=== PATIENT | male | born 1945 | race American Indian/Alaskan Native ===

== ENCOUNTER 2018-05-23 19:34 | Emergency (ER) | payer MEDICARE, MEDICAID ==
[2018-05-23 21:18] LABS: BASO % 0.5 % (0.0-3.0); EOS % 1.1 % (1.5-5.0); GRAN % 76.6 % (50.0-68.0); HEMOGLOBIN 11.8 g/dL (14.0-18.0); MEAN CELL VOLUME 89.6 fl (80.0-105.0); MEAN CORPUSCULAR HEMOGLOBIN 29.8 pg (25.0-35.0); MEAN CORPUSCULAR HGB CONC 33.2 g/dl (31.0-37.0); MEAN PLATELET VOLUME 10.1 fl (7.0-11.0); MONO % 3.8 % (1.0-6.0); RBC 3.96 10^6/uL (3.5-6.1); RED CELL DISTRIBUTION WIDTH 13.6 % (11.5-14.5); WHITE BLOOD COUNT 7.5 10^3/ul (4.5-11.0)
[2018-05-23 21:19] LABS: BASO # 0.04 K/mm3 (0.0-2.0); EOS # 0.1 (0.0-0.7); GRAN # 5.71 (1.4-6.5); LYMPH # 1.3 (1.2-3.4); MONO # 0.3 (0.1-0.6)
[2018-05-23 21:33] LABS: ALB/GLOB RATIO 1.2 (1.1-1.8); ALBUMIN 3.8 g/dL (3.0-4.8); ALT/SGPT 33 U/L (7-56); AST/SGOT 25 U/L (17-59); BLOOD UREA NITROGEN 15 mg/dL (7-21); CALCIUM 8.8 mg/dL (8.4-10.5); GFR NON-AFRICAN AMERICAN > 60
--- NOTE | 2018-05-23 21:35 | ED PDOC ---
Arrival/HPI - General Chief Complaint: Psychiatric Evaluation Time Seen by Provider: 05/23/18 19:42 Historian: EMS - History of Present Illness Narrative History of Present Illness (Text): 05/23/18 19:54 72 year old male, with no significant past medical history, presents to the Emergency department brought in by EMS for psychiatric evaluation today. As per EMS, patient was found on the street verbally interacting with the public with nonsensical language and was brought to the Emergency department for evaluation. Upon arrival to the Emergency department, patient is uncooperative and is a poor historian. HPI and ROS limited. Time/Duration: Prior to Arrival Symptom Onset: Gradual Symptom Course: Unchanged Activities at Onset: Light Context: Street Past Medical History - Provider Review Nursing Documentation Reviewed: Yes - Psychiatric Hx Substance Use: No (Unknown) Family/Social History - Physician Review Nursing Documentation Reviewed: Yes Family/Social History: No Known Family HX Smoking Status: Unknown If Ever Smoked Hx Alcohol Use: No (Unknown) Hx Substance Use: No (Unknown) Allergies/Home Meds Allergies/Adverse Reactions: Allergies Unobtainable Allergy (Verified 05/23/18 19:49) Home Medications: Home Meds Medication Instructions Recorded Confirmed Unobtainable 05/23/18 05/23/18 Review of Systems - Review of Systems Systems not reviewed;Unavailable: Acuity of Condition Physical Exam Vital Signs Reviewed: Yes Vital Signs Temp Pulse Resp BP Pulse Ox 05/24/18 16:46 98.5 F 96 H 18 150/97 H 98 05/24/18 12:45 98.7 F 92 H 19 99 05/24/18 10:11 99.0 F 82 17 142/75 97 05/24/18 06:00 88 18 142/72 97 05/24/18 04:36 76 16 136/79 100 05/23/18 23:27 86 18 141/67 95 05/23/18 19:48 98.1 F 116 H 18 162/108 H 97 Temperature: Afebrile Blood Pressure: Hypertensive Pulse: Tachycardic Respiratory Rate: Normal Appearance: Positive for: Well-Appearing Pain Distress: None Mental Status: Positive for: other (Alert and oriented to only person) - Systems Exam Head: Present: Atraumatic, Normocephalic Pupils: Present: PERRL Extroacular Muscles: Present: EOMI Conjunctiva: Present: Normal Neck: Present: Normal Range of Motion Respiratory/Chest: Present: Clear to Auscultation, Good Air Exchange. No: Respiratory Distress, Accessory Muscle Use Cardiovascular: Present: Regular Rate and Rhythm, Normal S1, S2. No: Murmurs Abdomen: No: Tenderness, Distention, Peritoneal Signs Back: Present: Normal Inspection Upper Extremity: Present: Normal Inspection. No: Cyanosis, Edema Lower Extremity: Present: Normal Inspection. No: Edema Neurological: Present: GCS=15, CN II-XII Intact Skin: Present: Warm, Dry, Normal Color. No: Rashes Psychiatric: Present: Alert (Oriented to only person) Medical Decision Making ED Course and Treatment: 05/23/18 19:54 Impression: 72 year old male presents to the Emergency department for psychiatric evaluation. Plan: -- CT of Head -- EKG -- Labs -- Chest X-ray -- Urinalysis -- Reassess and disposition Prior Visits: Notes and results from previous visits were reviewed. Progress Notes: 05/24/18 01:24 CT of head reviewed by radiologist, shows: No acute intracranial findings. - Lab Interpretations Lab Results: 05/23/18 20:35 05/23/18 20:35 Lab Results 05/23/18 23:28: Urine Opiates Screen Negative, Urine Methadone Screen Negative, Ur Barbiturates Screen Negative, Ur Phencyclidine Scrn Negative, Ur Amphetamines Screen Negative, U Benzodiazepines Scrn Negative, U Oth Cocaine Metabols Negative, U Cannabinoids Screen Negative 05/23/18 23:28: Urine Color Yellow, Urine Appearance Clear, Urine pH 7.0, Ur Specific [place] 1.015, Urine Protein Negative, Urine Glucose (UA) Negative, Urine Ketones Negative, Urine Blood Negative, Urine Nitrate Negative, Urine Bilirubin Negative, Urine Urobilinogen 0.2, Ur Leukocyte Esterase Negative 05/23/18 20:35: Alcohol, Quantitative < 10 05/23/18 20:35: Salicylates < 1 L, Acetaminophen < 10.0 L 05/23/18 20:35: Sodium 146, Potassium 3.2 L, Chloride 107, Carbon Dioxide 28, Anion Gap 14, BUN 15, Creatinine 1.1, Est GFR ( Amer) > 60, Est GFR (Non- Af Amer) > 60, Random Glucose 95, Calcium 8.8, Magnesium 2.2, Total Bilirubin 0.2, AST 25, ALT 33, Alkaline Phosphatase 82, Total Creatine Kinase 384 H, CK- MB (CK-2) 2.6, CK-MB (CK-2) % Cancelled, Total Protein 7.0, Albumin 3.8, Globulin 3.2, Albumin/Globulin Ratio 1.2 05/23/18 20:35: WBC 7.5, RBC 3.96, Hgb 11.8 L, Hct 35.5 L, MCV 89.6, MCH 29.8, MCHC 33.2, RDW 13.6, Plt Count 298, MPV 10.1, Gran % 76.6 H, Lymph % (Auto) 18.0 L, [place] % (Auto) 3.8, Eos % (Auto) 1.1 L, Baso % (Auto) 0.5, Gran # 5.71, Lymph # (Auto) 1.3, [place] # (Auto) 0.3, Eos # (Auto) 0.1, Baso # (Auto) 0.04 - RAD Interpretation Radiology Orders: 05/23/18 19:54 HEAD W/O CONTRAST [CT] Stat CHEST PORTABLE [RAD] Stat Gate Attendant: Radiologist - EKG Interpretation EKG Interpretation (Text): 05/24/18 06:07 nsr rate 93 nssts changes - Medication Orders Current Medication Orders: Discontinued Medications Potassium Chloride (K-Dur 20 Meq Er Tab) 40 meq PO STAT STA Stop: 05/24/18 02:02 Last Admin: 05/24/18 05:23 Dose: Not Given Non-Admin Reason: Patient Refused - Transfer of Care Patient signed out to Dr:: ehsan Benavidez Statement The provider has reviewed the documentation as recorded by the Pramod Cruz. All medical record entries made by the Pramod were at my direction and personally dictated by me. I have reviewed the chart and agree that the record accurately reflects my personal performance of the history, physical exam, medical decision making, and the department course for this patient. I have also personally directed, reviewed, and agree with the discharge instructions and disposition. Disposition/Present on Arrival - Present on Arrival Any Indicators Present on Arrival: No History of DVT/PE: No History of Uncontrolled Diabetes: No Urinary Catheter: No History of Decub. Ulcer: No History Surgical Site Infection Following: None - Disposition Have Diagnosis and Disposition been Completed?: Yes Diagnosis: Psychiatric care Disposition Time: 07:00 Patient Problems: Current Active Problems Problem Status Onset Psychiatric care Acute Condition: GOOD Forms: [employer] (Luxembourgish)
[2018-05-23 21:57] LABS: CK-MB 2.6 ng/mL (0.0-3.6)
[2018-05-23 22:02] LABS: ACETAMINOPHEN < 10.0 ug/ml (10.0-20.0); SALICYLATE < 1 mg/dL (2.0-20.0)
[2018-05-24 00:40] LABS: URINE BILIRUBIN NEGATIVE (NEGATIVE); URINE BLOOD NEGATIVE (NEGATIVE); URINE GLUCOSE (UA) NEGATIVE (NEGATIVE); URINE LEUKOCYTE ESTERASE NEGATIVE Leu/uL (NEGATIVE); URINE PROTEIN NEGATIVE mg/dL (<30 mg/dL); URINE UROBILINOGEN 0.2 E.U./dL (<1 E.U./dL)
[2018-05-24 00:55] LABS: URINE APPEARANCE CLEAR (CLEAR); URINE COLOR YELLOW (YELLOW)
[2018-05-24 01:19] LABS: BARBITURATES, UR NEGATIVE (NEGATIVE); BENZODIAZEPINES, UR NEGATIVE (NEGATIVE); OPIATES, UR NEGATIVE (NEGATIVE); PHENCYCLIDINE, UR NEGATIVE (NEGATIVE)
[2018-05-24] MEDS ORDERED: Potassium Chloride 20 mEq ER Tab PO STA (02:01)
--- NOTE | 2018-05-24 08:02 | ED PDOC ---
Physical Exam Vital Signs Temp Pulse Resp BP Pulse Ox 05/24/18 16:46 98.5 F 96 H 18 150/97 H 98 05/24/18 12:45 98.7 F 92 H 19 99 05/24/18 10:11 99.0 F 82 17 142/75 97 05/24/18 06:00 88 18 142/72 97 05/24/18 04:36 76 16 136/79 100 05/23/18 23:27 86 18 141/67 95 05/23/18 19:48 98.1 F 116 H 18 162/108 H 97 Medical Decision Making ED Course and Treatment: 05/24/18 07:02 Patient endorsed to me by Dr. Lamar. Patient is confused at this time and has been medically cleared. Has been seen by [facility] and recommended to by seen by [facility] screen[facility]. Screeners request patient to be evaluated by psychiatrist Dr. Briceño. Awaiting Dr. Briceño to see patient at bedside. 05/24/18 08:[address] Briceño who has evaluated patient at bedside. Dr. Briceño recommends patient to be re-evaluated by [facility]. [facility] screeners have been paged. 05/24/18 1500 Appreciate consult w/. [facility] screen[facility] bedside: to admit pt invol hold. Pending bed 05/24/18 1900 signed out to oncoming physician - Lab Interpretations Lab Results: 05/23/18 20:35 05/23/18 20:35 Lab Results 05/23/18 23:28: Urine Opiates Screen Negative, Urine Methadone Screen Negative, Ur Barbiturates Screen Negative, Ur Phencyclidine Scrn Negative, Ur Amphetamines Screen Negative, U Benzodiazepines Scrn Negative, U Oth Cocaine Metabols Negative, U Cannabinoids Screen Negative 05/23/18 23:28: Urine Color Yellow, Urine Appearance Clear, Urine pH 7.0, Ur Specific [place] 1.015, Urine Protein Negative, Urine Glucose (UA) Negative, Urine Ketones Negative, Urine Blood Negative, Urine Nitrate Negative, Urine Bilirubin Negative, Urine Urobilinogen 0.2, Ur Leukocyte Esterase Negative 05/23/18 20:35: Alcohol, Quantitative < 10 05/23/18 20:35: Salicylates < 1 L, Acetaminophen < 10.0 L 05/23/18 20:35: Sodium 146, Potassium 3.2 L, Chloride 107, Carbon Dioxide 28, Anion Gap 14, BUN 15, Creatinine 1.1, Est GFR ( Amer) > 60, Est GFR (Non- Af Amer) > 60, Random Glucose 95, Calcium 8.8, Magnesium 2.2, Total Bilirubin 0.2, AST 25, ALT 33, Alkaline Phosphatase 82, Total Creatine Kinase 384 H, CK- MB (CK-2) 2.6, CK-MB (CK-2) % Cancelled, Total Protein 7.0, Albumin 3.8, Globulin 3.2, Albumin/Globulin Ratio 1.2 05/23/18 20:35: WBC 7.5, RBC 3.96, Hgb 11.8 L, Hct 35.5 L, MCV 89.6, MCH 29.8, MCHC 33.2, RDW 13.6, Plt Count 298, MPV 10.1, Gran % 76.6 H, Lymph % (Auto) 18.0 L, [place] % (Auto) 3.8, Eos % (Auto) 1.1 L, Baso % (Auto) 0.5, Gran # 5.71, Lymph # (Auto) 1.3, [place] # (Auto) 0.3, Eos # (Auto) 0.1, Baso # (Auto) 0.04 - RAD Interpretation Radiology Orders: 05/23/18 19:54 HEAD W/O CONTRAST [CT] Stat CHEST PORTABLE [RAD] Stat - Medication Orders Current Medication Orders: Discontinued Medications Potassium Chloride (K-Dur 20 Meq Er Tab) 40 meq PO STAT STA Stop: 05/24/18 02:02 Last Admin: 05/24/18 05:23 Dose: Not Given Non-Admin Reason: Patient Refused - Scribe Statement The provider has reviewed the documentation as recorded by the Marianelaibkulwant Hernandez Provider Scribe Attestation: All medical record entries made by the Marianelaibkulwant were at my direction and personally dictated by me. I have reviewed the chart and agree that the record accurately reflects my personal performance of the history, physical exam, medical decision making, and the department course for this patient. I have also personally directed, reviewed, and agree with the discharge instructions and disposition. Disposition/Present on Arrival - Present on Arrival Any Indicators Present on Arrival: No History of DVT/PE: No History of Uncontrolled Diabetes: No Urinary Catheter: No History of Decub. Ulcer: No History Surgical Site Infection Following: None - Disposition Have Diagnosis and Disposition been Completed?: Yes Diagnosis: Psychiatric care Disposition Time: 15:00 Patient Plan: Other, Transfer To ([facility]) Condition: GOOD Forms: [employer] (Tajik)
--- NOTE | 2018-05-24 09:00 | CT ---
Date of service: 05/23/2018 PROCEDURE: CT HEAD WITHOUT CONTRAST. HISTORY: ams COMPARISON: None available. TECHNIQUE: Axial computed tomography images were obtained through the head/brain without intravenous contrast. Radiation dose: Total exam DLP = 930.75 mGy-cm. This CT exam was performed using one or more of the following dose reduction techniques: Automated exposure control, adjustment of the mA and/or kV according to patient size, and/or use of iterative reconstruction technique. FINDINGS: HEMORRHAGE: No intracranial hemorrhage. BRAIN: Diffuse atrophy with prominence of the ventricles and sulci noted. No mass effect or edema. Bilateral basal ganglia calcifications. Scattered periventricular and subcortical white matter hypodensities, which are nonspecific, but often seen with chronic microvascular ischemic disease. Please note that MRI with diffusion imaging is more sensitive in the detection of acute ischemic event.Dense dural calcifications involving the falx. VENTRICLES: No hydrocephalus. CALVARIUM: Unremarkable. PARANASAL SINUSES: Unremarkable as visualized. No significant inflammatory changes. MASTOID AIR CELLS: Unremarkable as visualized. No inflammatory changes. OTHER FINDINGS: None. IMPRESSION: Generalized atrophy. Nonspecific white matter changes. Additional findings as above. Preliminary impression was provided by virtual radiologic.
--- NOTE | 2018-05-24 10:07 | RAD ---
Date of service: 05/23/2018 HISTORY: pes COMPARISON: No prior. FINDINGS: LUNGS: No active pulmonary disease. PLEURA: No significant pleural effusion identified, no pneumothorax apparent. CARDIOVASCULAR: Normal. OSSEOUS STRUCTURES: No significant abnormalities. VISUALIZED UPPER ABDOMEN: Normal. OTHER FINDINGS: None. IMPRESSION: No active disease.
--- NOTE | 2018-05-24 11:42 | CARD ---
APPROVED REPORT Date of service: 05/23/2018 EKG Measurement Heart [id number] <Conclusion> Normal sinus rhythm Nonspecific T wave abnormality LVH by voltage
[2018-05-24 16:46] VITALS: RESP 18
--- NOTE | 2018-05-24 19:32 | ED PDOC ---
Physical Exam Vital Signs Temp Pulse Resp BP Pulse Ox 05/24/18 16:46 98.5 F 96 H 18 150/97 H 98 05/24/18 12:45 98.7 F 92 H 19 99 05/24/18 10:11 99.0 F 82 17 142/75 97 05/24/18 06:00 88 18 142/72 97 05/24/18 04:36 76 16 136/79 100 05/23/18 23:27 86 18 141/67 95 05/23/18 19:48 98.1 F 116 H 18 162/108 H 97 Medical Decision Making ED Course and Treatment: 05/24/18 19:31 Patient endorsed to me by . - Lab Interpretations Lab Results: 05/23/18 20:35 05/23/18 20:35 Lab Results 05/23/18 23:28: Urine Opiates Screen Negative, Urine Methadone Screen Negative, Ur Barbiturates Screen Negative, Ur Phencyclidine Scrn Negative, Ur Amphetamines Screen Negative, U Benzodiazepines Scrn Negative, U Oth Cocaine Metabols Negative, U Cannabinoids Screen Negative 05/23/18 23:28: Urine Color Yellow, Urine Appearance Clear, Urine pH 7.0, Ur Specific [place] 1.015, Urine Protein Negative, Urine Glucose (UA) Negative, Urine Ketones Negative, Urine Blood Negative, Urine Nitrate Negative, Urine Bilirubin Negative, Urine Urobilinogen 0.2, Ur Leukocyte Esterase Negative 05/23/18 20:35: Alcohol, Quantitative < 10 05/23/18 20:35: Salicylates < 1 L, Acetaminophen < 10.0 L 05/23/18 20:35: Sodium 146, Potassium 3.2 L, Chloride 107, Carbon Dioxide 28, Anion Gap 14, BUN 15, Creatinine 1.1, Est GFR ( Amer) > 60, Est GFR (Non- Af Amer) > 60, Random Glucose 95, Calcium 8.8, Magnesium 2.2, Total Bilirubin 0.2, AST 25, ALT 33, Alkaline Phosphatase 82, Total Creatine Kinase 384 H, CK- MB (CK-2) 2.6, CK-MB (CK-2) % Cancelled, Total Protein 7.0, Albumin 3.8, Globulin 3.2, Albumin/Globulin Ratio 1.2 05/23/18 20:35: WBC 7.5, RBC 3.96, Hgb 11.8 L, Hct 35.5 L, MCV 89.6, MCH 29.8, MCHC 33.2, RDW 13.6, Plt Count 298, MPV 10.1, Gran % 76.6 H, Lymph % (Auto) 18.0 L, [place] % (Auto) 3.8, Eos % (Auto) 1.1 L, Baso % (Auto) 0.5, Gran # 5.71, Lymph # (Auto) 1.3, [place] # (Auto) 0.3, Eos # (Auto) 0.1, Baso # (Auto) 0.04 - RAD Interpretation Radiology Orders: 05/23/18 19:54 HEAD W/O CONTRAST [CT] Stat CHEST PORTABLE [RAD] Stat - Medication Orders Current Medication Orders: Discontinued Medications Potassium Chloride (K-Dur 20 Meq Er Tab) 40 meq PO STAT STA Stop: 05/24/18 02:02 Last Admin: 05/24/18 05:23 Dose: Not Given Non-Admin Reason: Patient Refused - Scribe Statement The provider has reviewed the documentation as recorded by the Scribkulwant Cartagena Provider Scribe Attestation: All medical record entries made by the Scribe were at my direction and personally dictated by me. I have reviewed the chart and agree that the record accurately reflects my personal performance of the history, physical exam, medical decision making, and the department course for this patient. I have also personally directed, reviewed, and agree with the discharge instructions and disposition. Disposition/Present on Arrival - Present on Arrival Any Indicators Present on Arrival: No History of DVT/PE: No History of Uncontrolled Diabetes: No Urinary Catheter: No History of Decub. Ulcer: No History Surgical Site Infection Following: None - Disposition Diagnosis: Psychiatric care Patient Problems: Current Active Problems Problem Status Onset Psychiatric care Acute Condition: GOOD Forms: [employer] (Solomon Islander)
[2018-05-25 07:02] VITALS: O2SAT 100
--- NOTE | 2018-05-25 07:22 | ED PDOC ---
Physical Exam Vital Signs Reviewed: Yes Vital Signs Temp Pulse Resp BP Pulse Ox 05/25/18 06:30 98.9 F 81 18 178/82 H 100 05/24/18 16:46 98.5 F 96 H 18 150/97 H 98 05/24/18 12:45 98.7 F 92 H 19 99 05/24/18 10:11 99.0 F 82 17 142/75 97 05/24/18 06:00 88 18 142/72 97 05/24/18 04:36 76 16 136/79 100 05/23/18 23:27 86 18 141/67 95 05/23/18 19:48 98.1 F 116 H 18 162/108 H 97 Temperature: Afebrile Blood Pressure: Hypertensive Pulse: Tachycardic Respiratory Rate: Normal Medical Decision Making ED Course and Treatment: Progress notes: 05/25/18 07:00 Case endorsed to me by Dr. Lamar, pending [facility]. 05/25/18 9:20 Patient is comfortable and in no acute distress. His bed is now available at [facility]. He will be transferred there for further psychiatric care. - Lab Interpretations Lab Results: 05/23/18 20:35 05/23/18 20:35 Lab Results 05/23/18 23:28: Urine Opiates Screen Negative, Urine Methadone Screen Negative, Ur Barbiturates Screen Negative, Ur Phencyclidine Scrn Negative, Ur Amphetamines Screen Negative, U Benzodiazepines Scrn Negative, U Oth Cocaine Metabols Negative, U Cannabinoids Screen Negative 05/23/18 23:28: Urine Color Yellow, Urine Appearance Clear, Urine pH 7.0, Ur Specific [place] 1.015, Urine Protein Negative, Urine Glucose (UA) Negative, Urine Ketones Negative, Urine Blood Negative, Urine Nitrate Negative, Urine Bilirubin Negative, Urine Urobilinogen 0.2, Ur Leukocyte Esterase Negative 05/23/18 20:35: Alcohol, Quantitative < 10 05/23/18 20:35: Salicylates < 1 L, Acetaminophen < 10.0 L 05/23/18 20:35: Sodium 146, Potassium 3.2 L, Chloride 107, Carbon Dioxide 28, Anion Gap 14, BUN 15, Creatinine 1.1, Est GFR ( Amer) > 60, Est GFR (Non- Af Amer) > 60, Random Glucose 95, Calcium 8.8, Magnesium 2.2, Total Bilirubin 0.2, AST 25, ALT 33, Alkaline Phosphatase 82, Total Creatine Kinase 384 H, CK- MB (CK-2) 2.6, CK-MB (CK-2) % Cancelled, Total Protein 7.0, Albumin 3.8, Globulin 3.2, Albumin/Globulin Ratio 1.2 05/23/18 20:35: WBC 7.5, RBC 3.96, Hgb 11.8 L, Hct 35.5 L, MCV 89.6, MCH 29.8, MCHC 33.2, RDW 13.6, Plt Count 298, MPV 10.1, Gran % 76.6 H, Lymph % (Auto) 18.0 L, [place] % (Auto) 3.8, Eos % (Auto) 1.1 L, Baso % (Auto) 0.5, Gran # 5.71, Lymph # (Auto) 1.3, [place] # (Auto) 0.3, Eos # (Auto) 0.1, Baso # (Auto) 0.04 - RAD Interpretation Radiology Orders: 05/23/18 19:54 HEAD W/O CONTRAST [CT] Stat CHEST PORTABLE [RAD] Stat - Medication Orders Current Medication Orders: Discontinued Medications Potassium Chloride (K-Dur 20 Meq Er Tab) 40 meq PO STAT STA Stop: 05/24/18 02:02 Last Admin: 05/24/18 05:23 Dose: Not Given Non-Admin Reason: Patient Refused - Scribe Statement The provider has reviewed the documentation as recorded by the Scribe Uma Almazan All medical record entries made by the Scribe were at my direction and personally dictated by me. I have reviewed the chart and agree that the record accurately reflects my personal performance of the history, physical exam, medical decision making, and the department course for this patient. I have also personally directed, reviewed, and agree with the discharge instructions and disposition. Disposition/Present on Arrival - Present on Arrival Any Indicators Present on Arrival: No History of DVT/PE: No History of Uncontrolled Diabetes: No Urinary Catheter: No History of Decub. Ulcer: No History Surgical Site Infection Following: None - Disposition Have Diagnosis and Disposition been Completed?: Yes Diagnosis: Psychiatric care Disposition: Transfer [facility] Disposition Time: 09:20 Patient Plan: Transfer To [facility]: GOOD Forms: [employer] (Occitan)
[2018-05-25 08:58] VITALS: BP 178/79; PULSE 88; TEMP 98.8
== END 2018-05-25 09:10 | disposition short-term general hospital (02) ==
LOC: ED 19:34 → EDBD 19:34 → ED 05-25 09:10
DX: Z00.8 Encounter for other general examination (principal)
CPT/HCPCS: 70450; 71045; 80053; 81003; 82550; 82553; 83735; 85025; 90791; 93005; 99285; G0480